=== PATIENT | female | born 1945 | race Caucasian/White ===

== ENCOUNTER 2018-02-14 14:08 | Emergency (ER) | payer OTHER ==
--- NOTE | 2018-02-14 15:34 | RAD REPORT ---
EXAM DESCRIPTION: RAD - Shoulder Right 2 View - 02/14/2018 3:25 pm CLINICAL HISTORY: PAIN Fall COMPARISON: No comparisons FINDINGS: Mild AC joint and glenohumeral joint arthritic changes are present. No acute fracture or d islocation seen.
--- NOTE | 2018-02-14 15:35 | RAD REPORT ---
EXAM DESCRIPTION: RAD - Chest Pa And Lat (2 Views) - 02/14/2018 3:24 pm CLINICAL HISTORY: PAIN Chest pain. COMPARISON: No comparisons FINDINGS: The lungs are clear. The heart is normal in size. No displaced fractures. IMPRESSION: No acute or concerning finding suspected.
--- NOTE | 2018-02-14 15:56 | ER ---
Nurse's Notes [facility] Name: Chris Aguila Age: 73 yrs Sex: Female : 1945 Arrival Date: 02/14/2018 Time: 14:15 Bed 30 Private MD: Yaya Lopez T Diagnosis: Pain in right shoulder Presentation: 02/14 14:30 Presenting complaint: Patient states: "I fell last night directly on my (right) aj1 shoulder. My made me this sling so I could sleep. I thought I could see my doctor today, but when I called they said just come to the ER" Limited ROM noted to right shoulder. Transition of care: patient was not received from another setting of care. Onset of symptoms was February 13, 2018 at 21:00. Risk Assessment: Do you want to hurt yourself or someone else? Patient reports no desire to harm self or others. Initial Sepsis Screen: Does the patient meet any 2 criteria? No. Patient's initial sepsis screen is negative. Does the patient have a suspected source of infection? No. Patient's initial sepsis screen is negative. Care prior to arrival: None. 14:30 Method Of Arrival: Ambulatory [facility] 14:30 Acuity: BINH 4 aj1 Triage Assessment: 14:33 General: Appears in no apparent distress. uncomfortable, Behavior is calm, cooperative, aj1 appropriate for age. Pain: Complains of pain in anterior aspect of right shoulder and posterior aspect of right shoulder. Pain: Pain currently is 0 out of 10 on a pain scale. at worst was 10 out of 10 on a pain scale. Neuro: Level of Consciousness is awake, alert, obeys commands. Cardiovascular: Patient's skin is warm and dry. Respiratory: Airway is patent Respiratory effort is even, unlabored, Respiratory pattern is regular, symmetrical. Musculoskeletal: Range of motion: limited in right shoulder. Injury Description: Patient reports fall from standing. States that she does not have any pain unless she is moving her arm. Historical: - Allergies: 14:33 Sulfa (Sulfonamide Antibiotics); aj1 - Home Meds: 14:33 losartan oral oral [Active]; "an antihistamine" [Active]; aj1 - PMHx: 14:33 Hypertension; aj1 - Immunization history:: Flu vaccine is up to date. - Social history:: Smoking status: Patient/guardian denies using tobacco. - Ebola Screening: : Patient denies travel to an Ebola-affected area in the 21 days before illness onset. Screenin:20 Abuse screen: Denies threats or abuse. Denies injuries from another. Nutritional iw screening: No deficits noted. Tuberculosis screening: No symptoms or risk factors identified. Fall Risk Fall in past 12 months (25 points). Assessment: 15:20 General: Appears in no apparent distress. Behavior is calm, cooperative. Pain: iw Complains of pain in posterior aspect of right shoulder and anterior aspect of right shoulder. Neuro: Level of Consciousness is awake, alert, obeys commands, Oriented to person, place, time, situation, Moves all extremities. Full function. Cardiovascular: Capillary refill < 3 seconds in bilateral fingers Patient's skin is warm and dry. Respiratory: Respiratory effort is even, unlabored, Respiratory pattern is regular, symmetrical. GI: No signs and/or symptoms were reported involving the gastrointestinal system. Derm: Skin is intact, is healthy with good turgor. Musculoskeletal: Range of motion: intact in all extremities, Reports pain in right shoulder. Vital Signs: 14:33 BP 159 / 87; Pulse 69; Resp 18; Temp 98.4; Pulse Ox 98% on R/A; Weight 72.57 kg (R); aj1 Height 5 ft. 7 in. (170.18 cm) (R); Pain 0/10; 14:33 Body Mass Index 25.06 (72.57 kg, 170.18 cm) aj1 ED Course: 14:15 Patient arrived in ED. mr 14:16 Yaya Lopez MD is Private Physician. mr 14:32 Triage completed. aj1 14:33 Arm band placed on Patient placed in waiting room, Patient notified of wait time. aj1 15:20 Renate Pisano FNP-C is PHCP. kb 15:20 Stefano Weston MD is Attending Physician. kb 15:20 X-ray completed. Patient tolerated procedure well. jb2 15:20 Patient moved to radiology. jb2 15:20 Patient has correct armband on for positive identification. iw 15:20 No provider procedures requiring assistance completed. Patient did not have IV access iw during this emergency room visit. 15:21 Patient taken to an exam room, Patient moved back from radiology. jb2 15:22 Shoulder Right (2 View) XRAY In Process Unspecified. EDMS 15:22 Chest Pa And Lat (2 Views) XRAY In Process Unspecified. EDMS 15:29 Kezia Aguirre, RN is Primary Nurse. iw Administered Medications: No medications were administered Outcome: 15:54 Discharge ordered by . kb 16:18 Discharged to home ambulatory. iw 16:18 Condition: good 16:18 Discharge instructions given to patient, Instructed on discharge instructions, follow up and referral plans. medication usage, Demonstrated understanding of instructions, follow-up care, medications, Prescriptions given X 2. 16:19 Patient left the ED. iw Signatures: Dispatcher [employer] EDMS Renate Pisano, PHYSICIAN CODER-C PHYSICIAN CODER-Samira Matamoros, RN RN aj1 Lisandra Oneal Jesse jb2 Kezia Aguirre, RN RN iw
--- NOTE | 2018-02-14 15:56 | EDPHYS ---
Physician Documentation [facility] Name: Chris Aguila Age: 73 yrs Sex: Female : 1945 Arrival Date: 02/14/2018 Time: 14:15 Bed 30 Private MD: Yaya Lopez T ED Physician Stefano Weston HPI: 02/14 15:52 This 73 yrs old Female presents to ER via Ambulatory with complaints of kb Shoulder Injury. 15:52 The patient or guardian complains of decreased range of motion, pain, that is acute. kb right shoulder. Context: The problem was sustained outdoors, resulted from a fall, while walking, The patient experiences decreased range of motion, when attempts to raise arm, The patient reports no obvious deformity. Onset: The symptoms/episode began/occurred yesterday. Modifying factors: the symptoms are alleviated by nothing. The symptoms are aggravated by movement. Associated signs and symptoms: The patient has no apparent associated signs or symptoms. Severity of symptoms: At their worst the symptoms were severe, in the emergency department the symptoms have improved, moderately. Treatment prior to arrival includes: over the counter medications, NSAIDS, sling. The patient has not experienced similar symptoms in the past. The patient has not recently seen a physician. pt reports she tripped last night and landed on right shoulder. . Historical: - Allergies: 14:33 Sulfa (Sulfonamide Antibiotics); aj1 - Home Meds: 14:33 losartan oral oral [Active]; "an antihistamine" [Active]; aj1 - PMHx: 14:33 Hypertension; aj1 - Immunization history:: Flu vaccine is up to date. - Social history:: Smoking status: Patient/guardian denies using tobacco. - Ebola Screening: : Patient denies travel to an Ebola-affected area in the 21 days before illness onset. ROS: 15:52 Constitutional: Negative for fever, chills, and weight loss, Cardiovascular: Negative kb for chest pain, palpitations, and edema, Respiratory: Negative for shortness of breath, cough, wheezing, and pleuritic chest pain, Abdomen/GI: Negative for abdominal pain, nausea, vomiting, diarrhea, and constipation, Skin: Negative for injury, rash, and discoloration, Neuro: Negative for headache, weakness, numbness, tingling, and seizure. 15:52 MS/extremity: Positive for decreased range of motion, pain, tenderness, Negative for acute changes, injury or acute deformity, abrasion, bite, contusion, deformity, ecchymosis, erythema, laceration, paresthesias, puncture, rash, swelling, tingling, warmth. Exam: 15:52 Constitutional: This is a well developed, well nourished patient who is awake, alert, kb and in no acute distress. Head/Face: Normocephalic, atraumatic. Chest/axilla: Normal chest wall appearance and motion. Nontender with no deformity. No lesions are appreciated. Cardiovascular: Regular rate and rhythm with a normal S1 and S2. No gallops, murmurs, or rubs. Normal PMI, no JVD. No pulse deficits. Respiratory: Lungs have equal breath sounds bilaterally, clear to auscultation and percussion. No rales, rhonchi or wheezes noted. No increased work of breathing, no retractions or nasal flaring. Abdomen/GI: Soft, non-tender, with normal bowel sounds. No distension or tympany. No guarding or rebound. No evidence of tenderness throughout. Skin: Warm, dry with normal turgor. Normal color with no rashes, no lesions, and no evidence of cellulitis. Neuro: Awake and alert, GCS 15, oriented to person, place, time, and situation. Cranial nerves II-XII grossly intact. Motor strength 5/5 in all extremities. Sensory grossly intact. Cerebellar exam normal. Normal gait. 15:52 Musculoskeletal/extremity: Extremities: grossly normal except: noted in the right shoulder: decreased ROM, pain, tenderness, ROM: limited active range of motion due to pain, in the right shoulder, Circulation is intact in all extremities. Sensation intact. Vital Signs: 14:33 BP 159 / 87; Pulse 69; Resp 18; Temp 98.4; Pulse Ox 98% on R/A; Weight 72.57 kg (R); aj1 Height 5 ft. 7 in. (170.18 cm) (R); Pain 0/10; 14:33 Body Mass Index 25.06 (72.57 kg, 170.18 cm) aj1 MDM: 15:20 Patient medically screened. kb 15:52 Data reviewed: vital signs, nurses notes. Data interpreted: Pulse oximetry: on room air kb is 98 %. Interpretation: normal. Counseling: I had a detailed discussion with the patient and/or guardian regarding: the historical points, exam findings, and any diagnostic results supporting the discharge/admit diagnosis, radiology results, the need for outpatient follow up, a orthopedic surgeon, to return to the emergency department if symptoms worsen or persist or if there are any questions or concerns that arise at home. 02/14 14:35 Order name: Shoulder Right (2 View) XRAY; Complete Time: 15:39 aj1 02/14 14:53 Order name: Chest Pa And Lat (2 Views) XRAY; Complete Time: 15:39 snw 02/14 15:52 Order name: Sling; Complete Time: 18:28 kb Administered Medications: No medications were administered Disposition: 02/14/18 15:54 Discharged to Home. Impression: Pain in right shoulder. - Condition is Stable. - Discharge Instructions: Shoulder Pain, [id number]. - Prescriptions for Diclofenac Sodium 75 mg Oral Tablet, Delayed Release (E.C.) - take 1 tablet by ORAL route 2 times per day As needed; 30 tablet. orphenadrine citrate 100 mg Oral Tablet Sustained Release - take 1 tablet by ORAL route 2 times per day As needed; 20 tablet. - Medication Reconciliation Form, Thank You Letter, Antibiotic Education, Prescription Opioid Use form. - Follow up: Emergency Department; When: As needed; Reason: Worsening of condition. Follow up: Private Physician; When: 2 - 3 days; Reason: Recheck today's complaints, Continuance of care, Re-evaluation by your physician. Addendum: 02/19/2018 06:23 Co-signature as Attending Physician, Stefano Weston MD I agree with the assessment and c shaw plan of care. Signatures: Dispatcher [employer] Renate Riddle, HEAD OF MOBILE-C HEAD OF MOBILE-Ckb Samira Ventura RN RN ajStefano Perez MD MD cha Williams, Irene RN RN iw Corrections: (The following items were deleted from the chart) 02/14 16:19 15:54 02/14/2018 15:54 Discharged to Home. Impression: Pain in right shoulder. iw Condition is Stable. Forms are Medication Reconciliation Form, Thank You Letter, Antibiotic Education, Prescription Opioid Use. Follow up: Emergency Department; When: As needed; Reason: Worsening of condition. Follow up: Private Physician; When: 2 - 3 days; Reason: Recheck today's complaints, Continuance of care, Re-evaluation by your physician. kb
== END 2018-02-14 16:19 | disposition home or self-care (01) ==
LOC: ER 14:08
DX: M25.511 Pain in right shoulder (principal); I10 Essential (primary) hypertension; Z88.2 Allergy status to sulfonamides
CPT/HCPCS: 71046; 99283

== ENCOUNTER 2021-06-23 20:06 | Emergency (ER) | payer OTHER ==
[2021-06-23 21:24] LABS: Lymphocytes % 22.9 % (15.3-44.8); MPV 8.7 fL (7.6-11.3); RBC Red Blood Cell Count 4.24 M/uL (3.86-4.86)
[2021-06-23 21:47] LABS: Albumin 3.7 g/dL (3.4-5.0); Bilirubin Total 0.4 mg/dL (0.2-1.0); Potassium 3.1 mmol/L (3.5-5.1); Protein, Total 7.9 g/dL (6.4-8.2)
[2021-06-23] MEDS ORDERED: MEPERIDINE HCL 25 MG/ML SYR ONE (21:50)
[2021-06-23] MEDS ORDERED: ONDANSETRON 4 MG/2 ML VIAL ONE (21:50)
[2021-06-24] MEDS ORDERED: MEPERIDINE HCL 25 MG/ML SYR ONE (00:27)
[2021-06-24] MEDS ORDERED: PROMETHAZINE INJ 25 MG/ML AMP ONE (00:27)
[2021-06-24] MEDS ORDERED: NA CHLORIDE 0.9% 50 ML ONE (00:28)
--- NOTE | 2021-06-24 00:32 | ER ---
Nurse's Notes [facility] Name: Chris Aguila Age: 76 yrs Sex: Female : 1945 Arrival Date: 06/23/2021 Time: 20:10 Bed 20 Private MD: Diagnosis: Other cholelithiasis without obstruction Presentation: 06/23 20:17 Chief complaint: Patient states: right upper quadrant pain starting Monday radiating to lg3 the back with fever and chills. pain stopped Monday. saw dr Sargent yesterday and was told to follow up with ultrasound. ultrasound scheduled for July 02. pain started again today and not easing up. Coronavirus screen: Client denies travel out of the [place] in the last 14 days. At this time, the client does not indicate any symptoms associated with coronavirus-19. Ebola Screen: No symptoms or risks identified at this time. Initial Sepsis Screen: Does the patient meet any 2 criteria? No. Patient's initial sepsis screen is negative. Does the patient have a suspected source of infection? No. Patient's initial sepsis screen is negative. Risk Assessment: Do you want to hurt yourself or someone else? Patient reports no desire to harm self or others. Onset of symptoms was June 18, 2021. 20:17 Method Of Arrival: Ambulatory lg3 20:17 Acuity: BINH 3 lg3 Triage Assessment: 20:21 General: Appears in no apparent distress. uncomfortable, Behavior is calm, cooperative. lg3 Pain: Complains of pain in right upper quadrant Pain radiates to back. EENT: No deficits noted. No signs and/or symptoms were reported regarding the EENT system. Neuro: No deficits noted. Level of Consciousness is awake, alert, obeys commands, Oriented to person, place, time, situation. Cardiovascular: No deficits noted. Denies chest pain, shortness of breath. Respiratory: No deficits noted. Airway is patent Trachea midline Respiratory effort is even, unlabored, Respiratory pattern is regular, symmetrical. GI: Reports upper abdominal pain, cramping, intolerance of fluids, intolerance of food, nausea, vomiting. : No deficits noted. No signs and/or symptoms were reported regarding the genitourinary system. Derm: No deficits noted. No signs and/or symptoms reported regarding the dermatologic system. Skin is intact, is healthy with good turgor, Skin is dry. Musculoskeletal: No deficits noted. No signs and/or symptoms reported regarding the musculoskeletal system. Circulation, motion, and sensation intact. Range of motion: intact in all extremities. Historical: - Allergies: 20:21 Sulfa (Sulfonamide Antibiotics); lg3 - Home Meds: 20:21 "an antihistamine" [Active]; Atenolol Oral [Active]; Metformin Oral [Active]; lg3 - PMHx: 20:21 Hypertension; lg3 - PSHx: 20:21 None; lg3 - Immunization history:: Adult Immunizations up to date, Client reports receiving the 2nd dose of the Covid vaccine, moderna X2. - Social history:: Smoking status: Patient denies any tobacco usage or history of. Patient/guardian denies using alcohol. Screenin:25 Abuse screen: Denies threats or abuse. Denies injuries from another. Nutritional lg3 screening: No deficits noted. Tuberculosis screening: No symptoms or risk factors identified. Fall Risk None identified. Assessment: 21:33 General: Appears in no apparent distress. Behavior is cooperative, appropriate for age. sm5 Pain: Complains of pain in back and abdomen and right upper quadrant. Neuro: No deficits noted. Level of Consciousness is awake, alert, obeys commands, Oriented to person, place, time, situation. Cardiovascular: No deficits noted. Capillary refill < 3 seconds Patient's skin is warm and dry. Respiratory: No deficits noted. Airway is patent Trachea midline Respiratory effort is even, unlabored. GI: Bowel sounds present X 4 quads. Abd is soft Reports intolerance of food, nausea, vomiting. 22:45 Reassessment: No changes from previously documented assessment. sm5 23:57 Reassessment: No changes from previously documented assessment. Patient and/or family sm5 updated on plan of care and expected duration. Pain level reassessed. 06/24 00:20 Reassessment: No changes from previously documented assessment. sm5 Vital Signs: 06/23 20:17 BP 171 / 62; Pulse 54; Resp 16 S; Temp 98.1(O); Pulse Ox 100% on R/A; Weight 72.57 kg lg3 (R); Height 5 ft. 7 in. (170.18 cm) (R); Pain 8/10; 21:34 BP 156 / 69; Pulse 59; Resp 18; Pulse Ox 95% on R/A; sm5 06/24 01:11 BP 140 / 72; Pulse 57; Resp 17; Pulse Ox 97% on R/A; sm5 06/23 20:17 Body Mass Index 25.06 (72.57 kg, 170.18 cm) lg3 ED Course: 06/23 20:10 Patient arrived in ED. kz 20:21 Triage completed. lg3 20:21 Arm band placed on right wrist. lg3 20:40 Alexx Freeman PA is PHCP. jr8 20:40 Stefano Weston MD is Attending Physician. jr8 20:49 Alexandria Galan, TRENT is Primary Nurse. sm5 21:07 Inserted saline lock: 20 gauge in right antecubital area, using aseptic technique. sm5 Blood collected. 21:16 CBC with Diff Sent. sm5 21:16 CMP Sent. sm5 21:16 Lipase Sent. sm5 21:34 Patient has correct armband on for positive identification. Bed in low position. Call 5 light in reach. Side rails up X2. Pulse ox on. NIBP on. 22:36 US Abdomen Limited In Process Unspecified. EDMS 06/24 00:31 Carlos Canseco MD is Referral Physician. jr8 01:11 No provider procedures requiring assistance completed. IV discontinued, intact, sm5 bleeding controlled, No redness/swelling at site. Pressure dressing applied. Administered Medications: 06/23 21:51 Drug: Demerol (meperidine) 25 mg Route: IVP; Site: right antecubital; 5 21:51 Drug: Zofran (Ondansetron) 4 mg Route: IVP; Site: right antecubital; sm5 06/24 00:33 Drug: Demerol (meperidine) 25 mg Route: IVP; Site: right antecubital; 5 00:33 Drug: Promethazine 12.5 mg Route: IVP; Site: right antecubital; 5 Outcome: 00:31 Discharge ordered by . jr8 01:11 Discharged to home ambulatory, with family. sm5 01:11 Condition: stable 01:11 Discharge instructions given to patient, family, Instructed on discharge instructions, follow up and referral plans. medication usage, Demonstrated understanding of instructions, follow-up care, medications, Prescriptions given X 3. 01:12 Patient left the ED. sm5 Signatures: Dispatcher [employer] EDMS Alexx Freeman PA PA jr8 Marcella Recinos RN RN lg3 Alexandria Galan RN RN sm5 Loreto Arellano
--- NOTE | 2021-06-24 00:32 | EDPHYS ---
Physician Documentation [facility] Name: Chris Aguila Age: 76 yrs Sex: Female : 1945 Arrival Date: 06/23/2021 Time: 20:10 Bed 20 Private MD: ED Physician Stefano Weston HPI: 06/23 21:55 This 76 yrs old Female presents to ER via Ambulatory with complaints of Abdominal Pain jr8 - Right upper. 21:55 The patient presents with abdominal pain in the right upper quadrant. Onset: The jr8 symptoms/episode began/occurred acutely, today. The symptoms radiate to right back. Associated signs and symptoms: Pertinent positives: nausea and vomiting. The symptoms are described as stabbing. Modifying factors: The symptoms are alleviated by nothing, the symptoms are aggravated by food. Severity of pain: At its worst the pain was moderate in the emergency department the pain is unchanged. The patient has experienced a previous episode. The patient has not recently seen a physician. Historical: - Allergies: 20:21 Sulfa (Sulfonamide Antibiotics); lg3 - Home Meds: 20:21 "an antihistamine" [Active]; Atenolol Oral [Active]; Metformin Oral [Active]; lg3 - PMHx: 20:21 Hypertension; lg3 - PSHx: 20:21 None; lg3 - Immunization history:: Adult Immunizations up to date, Client reports receiving the 2nd dose of the Covid vaccine, moderna X2. - Social history:: Smoking status: Patient denies any tobacco usage or history of. Patient/guardian denies using alcohol. ROS: 21:55 Eyes: Negative for injury, pain, redness, and discharge, ENT: Negative for injury, jr8 pain, and discharge, Neck: Negative for injury, pain, and swelling, Cardiovascular: Negative for chest pain, palpitations, and edema, Respiratory: Negative for shortness of breath, cough, wheezing, and pleuritic chest pain, Back: Negative for injury and pain, MS/Extremity: Negative for injury and deformity, Skin: Negative for injury, rash, and discoloration, Neuro: Negative for headache, weakness, numbness, tingling, and seizure. 21:55 Abdomen/GI: Positive for abdominal pain, nausea and vomiting, Negative for diarrhea. Exam: 21:55 Constitutional: This is a well developed, well nourished patient who is awake, alert, jr8 and in no acute distress. Cardiovascular: Regular rate and rhythm with a normal S1 and S2. No gallops, murmurs, or rubs. Normal PMI, no JVD. No pulse deficits. Respiratory: Lungs have equal breath sounds bilaterally, clear to auscultation and percussion. No rales, rhonchi or wheezes noted. No increased work of breathing, no retractions or nasal flaring. Back: No spinal tenderness. No costovertebral tenderness. Full range of motion. Skin: Warm, dry with normal turgor. Normal color with no rashes, no lesions, and no evidence of cellulitis. MS/ Extremity: Pulses equal, no cyanosis. Neurovascular intact. Full, normal range of motion. Neuro: Awake and alert, GCS 15, oriented to person, place, time, and situation. Cranial nerves II-XII grossly intact. Motor strength 5/5 in all extremities. Sensory grossly intact. 21:55 Abdomen/GI: Inspection: obese Bowel sounds: active, all quadrants, Palpation: soft, in all quadrants, moderate abdominal tenderness, in the right upper quadrant, mass, is not appreciated, rebound tenderness, is not appreciated, voluntary guarding, is not appreciated, involuntary guarding, is not appreciated, no appreciated organomegaly, Indicators: McBurney's point is not tender, Valencia's sign is negative, Rovsing's sign is negative, Liver: tenderness, is not appreciated. Vital Signs: 20:17 BP 171 / 62; Pulse 54; Resp 16 S; Temp 98.1(O); Pulse Ox 100% on R/A; Weight 72.57 kg lg3 (R); Height 5 ft. 7 in. (170.18 cm) (R); Pain 8/10; 21:34 BP 156 / 69; Pulse 59; Resp 18; Pulse Ox 95% on R/A; 5 06/24 01:11 BP 140 / 72; Pulse 57; Resp 17; Pulse Ox 97% on R/A; 5 06/23 20:17 Body Mass Index 25.06 (72.57 kg, 170.18 cm) lg3 MDM: 06/23 20:43 Patient medically screened. [facility] 06/24 00:26 Data reviewed: vital signs, nurses notes, lab test result(s), radiologic studies, jr8 ultrasound. Data interpreted: Pulse oximetry: on room air is 95 %. Interpretation: normal. Counseling: I had a detailed discussion with the patient and/or guardian regarding: the historical points, exam findings, and any diagnostic results supporting the discharge/admit diagnosis, lab results, radiology results, the need for outpatient follow up, a general surgeon, to return to the emergency department if symptoms worsen or persist or if there are any questions or concerns that arise at home. ED course: Offered to admit patient as patient still having pain and vomited one more time but wants to try outpatient meds at this time. Patient will follow up with Dr. Canseco and call for seen in the morning. Knows to come back if she were to worsen a point time. Patient hemodynamically stable and labs unremarkable. Ultrasound shows cholelithiasis without CBD dilation or wall thickening or pericholecystic fluid. Stable to go home at this time.. 06/23 20:42 Order name: CBC with Diff; Complete Time: 21:34 jr8 06/23 20:42 Order name: CMP; Complete Time: 21:57 jr8 06/23 20:42 Order name: Lipase; Complete Time: 21:57 jr8 06/23 21:36 Order name: US Abdomen Limited jr8 06/23 20:42 Order name: IV Saline Lock; Complete Time: 21:16 jr8 06/23 20:42 Order name: Labs collected and sent; Complete Time: 21:16 jr8 Administered Medications: 06/23 21:51 Drug: Demerol (meperidine) 25 mg Route: IVP; Site: right antecubital; sm5 21:51 Drug: Zofran (Ondansetron) 4 mg Route: IVP; Site: right antecubital; sm5 06/24 00:33 Drug: Demerol (meperidine) 25 mg Route: IVP; Site: right antecubital; sm5 00:33 Drug: Promethazine 12.5 mg Route: IVP; Site: right antecubital; sm5 Disposition: 06:41 Co-signature as Attending Physician, Stefano Weston MD I agree with the assessment and jacqueline plan of care. Disposition Summary: 06/24/21 00:31 Discharge Ordered Location: Home [facility] Problem: new jr8 Symptoms: have improved jr8 Condition: Stable jr8 Diagnosis - Other cholelithiasis without obstruction jr8 Followup: jr8 - With: Carlos Canseco MD - When: Tomorrow - Reason: Recheck today's complaints, Continuance of care, Re-evaluation by your physician Discharge Instructions: - Discharge Summary Sheet jr8 - Cholelithiasis jr8 - Gallbladder Eating Plan jr8 Forms: - Medication Reconciliation Form jr8 - Thank You Letter jr8 - Antibiotic Education jr8 - Prescription Opioid Use jr8 Prescriptions: - Cipro 500 mg Oral Tablet - take 1 tablet by ORAL route every 12 hours for 7 days; 14 tablet; Refills: 0, jr8 Product Selection Permitted - promethazine 25 mg Oral Tablet - take 1 tablet by ORAL route every 6 hours As needed; 20 tablet; Refills: 0, jr8 Product Selection Permitted - Tylenol-Codeine #3 300 mg-30 mg Oral - take 2 tablet by ORAL route every 8 hours As needed; 20 tablet; Refills: 0, jr8 Product Selection Permitted Signatures: Dispatcher [employer] Stefano Schuster MD MD cha Roszak, Josh, PA PA jr8 Marcella Recinos, RN RN lg3 Alexandria Galan RN RN sm5
[2021-06-24 02:05] VITALS: TEMP 98.1
[2021-06-24 02:07] VITALS: BP 140/72; O2SAT 97
--- NOTE | 2021-06-24 10:56 | RAD REPORT ---
EXAM DESCRIPTION: US - Abdomen Exam Limited - 06/23/2021 11:52 pm CLINICAL HISTORY: 76 years, Female, r/o GB;Abd pain COMPARISON: None . TECHNIQUE: Utilizing a curved array transducer, real-time ultrasound evaluation of the abdominal vis cera was performed. Color Doppler imaging was used to assess vascular flow. FINDINGS: The liver was not completely imaged although demonstrate increased echogenicity correspond ing to fatty infiltration. There is no definitive evidence for significant biliary duct dictation wit hin the visualized images. The gallbladder demonstrate presence of a tiny layering echogenic material with minimal posterior sha dowing corresponding to cholelithiasis/gravel. No pericholecystic fluid and or wall thickening was identified. The common bile duct measures 6.7 mm. No lytic the extrahepatic biliary duct dilatati on was identified. The pancreas, right were not imaged. IMPRESSION: VERY LIMITED ULTRASOUND DEMONSTRATING CHOLELITHIASIS. FATTY INFILTRATION OF THE LIVER INCOMPLETELY EVALUATED. Electronically signed by: Catalino Yanes MD 06/23/2021 10:50 PM CDT Due to temporary technical issues with the PACS/Fluency reporting system, reports are being signed by the in house radiologist without review as a courtesy to ensure prompt reporting. The interpreting r adiologist is fully responsible for the content of the report.
== END 2021-06-24 01:12 | disposition home or self-care (01) ==
LOC: ER 20:06
DX: K80.80 Other cholelithiasis without obstruction (principal); I10 Essential (primary) hypertension; Z88.2 Allergy status to sulfonamides
CPT/HCPCS: 85025; 36415; 83690; 80053; 76705; 96375; 96374; 99284; J2550; J2175 ×2; J2405

== ENCOUNTER 2021-07-05 08:01 | Day surgery (SDC) | payer OTHER ==
--- NOTE | 2021-06-30 14:25 | RAD REPORT ---
EXAM DESCRIPTION: RAD - Chest Pa And Lat (2 Views) - 06/30/2021 2:14 pm CLINICAL HISTORY: Pre op pending cholecystectomy Chest pain. COMPARISON: Chest Pa And Lat (2 Views) dated 02/14/2018 FINDINGS: The lungs are clear. The heart is normal in size. No displaced fractures. IMPRESSION: No acute or concerning finding suspected.
[2021-06-30 15:07] LABS: Albumin 3.5 g/dL (3.4-5.0); Bilirubin Direct 0.2 mg/dL (0-0.2); Bilirubin Total 0.5 mg/dL (0.2-1.0); Potassium 3.2 mmol/L (3.5-5.1)
[~2021-07-05 08:01] MED LIST: BUPIVACAINE 0.5% PF 10 ML VIAL SQ ONE
[2021-07-05] MEDS ORDERED: NA CHLORIDE 0.9% 1,000 ML ONE (08:22)
[2021-07-05] MEDS ORDERED: NA CHLORIDE 0.9% 50 ML ONE (08:22)
[2021-07-05] MEDS ORDERED: CEFOXITIN SODIUM 1 GM/VIAL ONE (08:22)
[2021-07-05] MEDS ORDERED: BUPIVACAINE 0.5% PF 10 ML VIAL ONE (08:40)
[2021-07-05] MEDS ORDERED: propofoL 200 MG/20 ML VIAL IV ONE (08:49)
[2021-07-05] MEDS ORDERED: LIDOCAINE 1% MPF 5 ML VIAL ONE (08:50)
[2021-07-05] MEDS ORDERED: ROCURONIUM 50 MG/5 ML VIAL IV ONE (08:50)
[2021-07-05] MEDS ORDERED: FENTANYL CITR 100 MCG/2 ML ONE (08:50)
[2021-07-05] MEDS ORDERED: dexAMETHasone 10 MG/ML VIAL ONE (09:13)
[2021-07-05] MEDS ORDERED: ONDANSETRON 4 MG/2 ML VIAL ONE ×2 (09:25→10:29)
[2021-07-05] MEDS ORDERED: NEOSTIGMINE 1 MG/ML -5 ML ONE (09:26)
[2021-07-05] MEDS ORDERED: GLYCOPYRROLATE 0.2 MG/ML SYR ONE ×2 (10:04→10:17)
[2021-07-05] MEDS ORDERED: Mastisol Adhesive Liq ONE (10:12)
--- NOTE | 2021-07-05 10:17 | P.OP ---
Plaster Form Maker: Naima CÁRDENAS Preoperative diagnosis: Chronic cholecystitis and cholelithiasis Postoperative diagnosis: Same, umbilical hernia Primary procedure: Laparoscopic cholecystectomy, repair of umbilical hernia Anesthesia: General Estimated blood loss: Minimal Specimen: Gallbladder, hernia sac Findings: As above Operative Technique: Patient brought to the OR and placed in supine position. General anesthesia begun and patient prepped and draped in the usual sterile fashion. 0.5% Marcaine infiltrated locally. Patient had a 2 cm periumbilical hernia. A 2 cm incision made over the umbilical hernia. Subcutaneous tissue divided hernia sac and contents identified and excised. Hernia sac and contents sent to pathology as specimen. #1 Vicryl stay suture placed. Peritoneal cavity entered with sharp and blunt dissection under direct vision. 12 mm trocar placed into the peritoneal cavity under direct vision. Pneumoperitoneum established. 5 mm trocar placed in the epigastric region just to the right middle midline. Two 5 mm trochars placed in the right subcostal region. Laparoscopy revealed chronic inflammation of the gallbladder with omental adhesion. The gallbladder was thick-walled as well. Adhesions taken down with sharp and blunt dissection. Fundus identified and retracted superiorly. Infundibulum identified and retracted inferolaterally. Cystic duct cystic artery clearly identified with blunt dissection. Both structures divided after clips are being appropriately placed. Then cautery used to remove the gallbladder from the liver bed. Bleeding on the liver bed controlled with cautery. Gallbladder retrieved through the umbilicus via Endo Catch bag. Right upper quadrant irrigated. Effluent clear with no evidence of bleeding or bile leakage appreciated. All trochars removed under direct vision. Stay sutures tied to each other to reapproximate the hernia defect. Subcutaneous wounds irrigated bleeding cont rolled with cautery. 3-0 chromic used to reapproximate subcutaneous tissue and closed skin. Sterile dressing applied. Patient awakened taken to recovery in good general condition.
[2021-07-05] MEDS ORDERED: HYDROCODONE/APAP 7.5/325 MG TAB PO PRN (10:19)
[2021-07-05] MEDS: HYDROMORPHONE HCL 1 MG/ML INJ ONE ×4 (10:24→10:57)
--- NOTE | 2021-07-05 10:29 | P.OP ---
Primary procedure: Laparoscopic cholecystectomy, repair of umbilical hernia Findings: As above Operative Technique: Patient brought to the OR and placed in supine position. General anesthesia begun and patient prepped and draped in the usual sterile fashion. 0.5% Marcaine infiltrated locally. Patient had a 2 cm periumbilical hernia. A 2 cm incision made over the umbilical hernia. Subcutaneous tissue divided hernia sac and contents identified and excised. Hernia sac and contents sent to pathology as specimen. #1 Vicryl stay suture placed. Peritoneal cavity entered with sharp and blunt dissection under direct vision. 12 mm trocar placed into the peritoneal cavity under direct vision. Pneumoperitoneum established. 5 mm trocar placed in the epigastric region just to the right middle midline. Two 5 mm trochars placed in the right subcostal region. Laparoscopy revealed chronic inflammation of the gallbladder with omental adhesion. The gallbladder was thick-walled as well. Adhesions taken down with sharp and blunt dissection. Fundus identified and retracted superiorly. Infundibulum identified and retracted inferolaterally. Cystic duct cystic artery clearly identified with blunt dissection. Both structures divided after clips are being appropriately placed. Then cautery used to remove the gallbladder from the liver bed. Bleeding on the liver bed controlled with cautery. Gallbladder retrieved through the umbilicus via Endo Catch bag. Right upper quadrant irrigated. Effluent clear with no evidence of bleeding or bile leakage appreciated. All trochars removed under direct vision. Stay sutures tied to each other to reapproximate the hernia defect. Subcutaneous wounds irrigated bleeding controlled with cautery. 3-0 chromic used to reapproximate subcutaneous tissue and closed skin. Sterile dressing applied. Patient awakened taken to recovery in good general condition. Transferred to: Recovery Room Condition: Good
[2021-07-05] MEDS: PROMETHAZINE INJ 25 MG/ML AMP ONE ×2 (10:32→10:39)
[2021-07-05] MEDS ORDERED: SCOPOLAMINE HYDROBROMIDE PATCH TD ONE (10:51)
[2021-07-05] MEDS ORDERED: METOCLOPRAMIDE 10 MG/2mL INJ ONE (10:51)
[2021-07-05 11:11] VITALS: TEMP 97.8
[2021-07-05 11:41] VITALS: BP 112/76; O2SAT 97
== END 2021-07-05 12:37 | disposition home or self-care (01) ==
LOC: OR 08:01
PROVIDERS: ATTEND Surgery
PROC: 0WQF0ZZ Repair Abdominal Wall, Open Approach (ICD-10-PCS; 2021-07-05)
PROC: 0FT44ZZ Resection of Gallbladder, Percutaneous Endoscopic Approach (ICD-10-PCS; principal; 2021-07-05 09:00)
DX: K42.9 Umbilical hernia without obstruction or gangrene (principal); K80.10 Calculus of gallbladder with chronic cholecystitis without obstruction; K80.50 Calculus of bile duct without cholangitis or cholecystitis without obstruction; Z20.822 Contact with and (suspected) exposure to COVID-19; Z88.2 Allergy status to sulfonamides
CPT/HCPCS: 93005; 80048; 36415; 82150; 82947 ×2; 80076; 88302; 88304; 71046; 47562; 49585; U0003; J2704; J2765; J2550; J3010; J1100; J1170 ×2; J2710; J7030; J0694; J2405 ×2